=== PATIENT | male | born 1990 | race Two or more races ===

== ENCOUNTER → 2023-07-20 | Outpatient (CLI) | payer OTHER | LOC: M SOG 12:47 | PROVIDERS: ATTEND Physician Assistant | DX: M25.532 Pain in left wrist (principal) ==

== ENCOUNTER → 2023-08-23 | Outpatient (CLI) | payer OTHER ==
[~2023-08-23] MED LIST: PROHANCE 279.3MG/ML 15ML VIAL ONE
== END ==
LOC: M PLAIMG 07:53
PROVIDERS: ATTEND Physician Assistant
DX: S60.922A Unspecified superficial injury of left hand, initial encounter (principal); Y93.9 Activity, unspecified; Y92.9 Unspecified place or not applicable
CPT/HCPCS: 73223; A9576